=== PATIENT | female | born 2000 | race Caucasian/White ===

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

== ENCOUNTER 2024-03-09 06:36 | Day surgery (SDC) | payer BC, OTHER ==
[~2024-03-09] VITALS: Ht 162.6 cm; Wt 54.0 kg
[~2024-03-09 06:36] MED LIST changes: +LR 1,000 ML IV SCH; +Ondansetron 4 MG/2 ML VIAL IV PRN
[2024-03-09] MEDS ORDERED: PROTONIX 40MG T40 MG PO (07:04)
[2024-03-09 07:05] VITALS: BP 137/93; PULSE 90; TEMP 97.9
[2024-03-09] MEDS ORDERED: Lidocaine PF 2% (20 MG/ML) 5 ML VIAL ONE (07:53)
[2024-03-09 08:25] VITALS: BP 107/79; PULSE 77; TEMP 98
[2024-03-09 08:40] VITALS: BP 119/78; PULSE 75
[2024-03-09 08:55] VITALS: BP 107/77; PULSE 75
--- NOTE | 2024-03-09 09:47 | NUR ---
0825- pt arrived to [place] [facility] - ambulated from cart to chair with standby assist 0830- pt tolerating po intake well 0924 - MD Julieta in room with pt and 0930- pt verbalized understanding discharge information 0935- pt dressed independently 0940- pt escorted out to husbands vehicle via wheelchair
== END 2024-03-09 09:40 | disposition home or self-care (01) ==
LOC: SDCO 06:36
DX: K29.50 Unspecified chronic gastritis without bleeding (principal)
CPT/HCPCS: J2704